=== PATIENT | male | born 1995 | race Caucasian/White ===

== ENCOUNTER 2018-04-02 10:27 | Emergency (ER) | payer SELFPAY ==
[2018-04-02] MEDS: OLANZAPINE (ODT) 5 MG TAB ODT (11:04)
== END 2018-04-02 11:40 | disposition home or self-care (01) ==
LOC: E/R 10:27
DX: F15.10 Other stimulant abuse, uncomplicated (principal); F22 Delusional disorders
CPT/HCPCS: 99283